=== PATIENT | male | born 1980 | race Caucasian/White ===

== ENCOUNTER 2022-03-16 09:16 | Emergency (ER) | payer OTHER ==
[~2022-03-16] VITALS: Ht 177.8 cm; Wt 97.7 kg
[2022-03-16 09:23] VITALS: BP 147/110
[2022-03-16 09:26] VITALS: BP 153/99
[2022-03-16 09:30] VITALS: BP 158/115
[2022-03-16] MEDS ORDERED: CEPHALEXIN500 MG PO (09:31)
[2022-03-16 09:45] VITALS: BP 144/95
[2022-03-16 11:11] VITALS: BP 144/95
== END 2022-03-16 11:19 | disposition home or self-care (01) | DRG 605 ==
LOC: ED 09:16
PROC: 0HQ1XZZ Repair Face Skin, External Approach (ICD-10-PCS; principal; 2022-03-16)
DX: S01.81XA Laceration without foreign body of other part of head, initial encounter (principal); S01.21XA Laceration without foreign body of nose, initial encounter; Y35.811A Legal intervention involving manhandling, law enforcement official injured, initial encounter; Y92.149 Unspecified place in prison as the place of occurrence of the external cause; Y99.0 Civilian activity done for income or pay

== ENCOUNTER 2024-05-31 19:51 | Emergency (ER) | payer OTHER ==
[~2024-05-31] VITALS: Ht 177.8 cm; Wt 90.0 kg
[~2024-05-31 19:51] MED LIST: CEPHALEXIN500 MG PO
[2024-05-31 20:38] VITALS: BP 168/104
[2024-05-31] MEDS ORDERED: MORPHINE SULFATE 4 MG/ML VIAL IV STA (20:54)
[2024-05-31] MEDS ORDERED: SODIUM CHLORIDE 0.9% 1,000 ML IV STA (20:54)
[2024-05-31] MEDS ORDERED: TAMSULOSIN HCL 0.4 MG CAP PO STA (20:54)
[2024-05-31] MEDS ORDERED: PROMETHAZINE HCL 25 MG/ML AMP IV ONE (20:55)
[2024-05-31] MEDS ORDERED: KETOROLAC TROMETHAMINE 30 MG/ML SDV IV ONE (20:55)
[2024-05-31 21:23] LABS: BASO% 0.3 % (0-3); EOS% 0.9 % (0-8); HEMOGLOBIN 15.4 g/dl (14.0-18.0); IMMATURE GRANULOCYTES 0.2 % (0.0-5.0); LYMPH% 15.5 % (15-41); MEAN CELL VOLUME 88.3 fL CALC (80.0-100.0); MEAN CORPUSCULAR HGB 29.6 pG CALC (26.0-32.0); MEAN CORPUSCULAR HGB CONC 33.5 g/dL CAL (32.0-36.0); MONO% 4.6 % (2-13); NEUT# 9.18 thou/uL (1.82-7.42); NEUT% 78.5 % (42-76); RED BLOOD COUNT 5.21 mill/uL (4.70-6.10); RED CELL DISTRI WIDTH 12.8 % (11.5-15.5)
[2024-05-31 21:29] LABS: URINE BILIRUBIN - DIPSTICK Negative (NEGATIVE); URINE BLOOD DIPSTICK Large (NEGATIVE); URINE GLUCOSE - DIPSTICK Negative (NEGATIVE); URINE KETONE Negative (NEGATIVE); URINE LEUK ESTERASE Negative (NEGATIVE); URINE NITRITE - DIPSTICK Negative (Negative); URINE PH 5.5 (4.5-8.0); URINE PROTEIN - DIPSTICK Trace mg/dL (NEG-TRACE); URINE SPECIFIC GRAVITY >=1.030; URINE UROBILINOGEN - DIPSTICK 0.2 E.U./dL (0.2)
[2024-05-31 21:33] LABS: URINE COLOR Yellow
[2024-05-31 21:38] LABS: ALBUMIN 4.7 g/dL (3.2-5.0); BILIRUBIN, TOTAL 0.5 mg/dL (0.2-1.3); CREATININE 1.4 mg/dL (0.7-1.3); POTASSIUM 4.4 mmol/l (3.5-5.1); TOTAL PROTEIN 7.9 g/dL (6.3-8.2); URINE CALCIUM OXALATE CRYSTALS FEW lpf
[2024-05-31] MEDS ORDERED: LACTATED RINGER'S 1,000 ML IV ONE (22:00)
[2024-05-31] MEDS ORDERED: TAMSULOSIN0.4 MG PO (23:01)
[2024-05-31] MEDS ORDERED: NAPROXEN375 MG PO (23:01)
[2024-05-31] MEDS ORDERED: LORTAB 5/3255 MG PO (23:01)
[2024-05-31 23:27] VITALS: BP 168/104
== END 2024-05-31 23:27 | disposition home or self-care (01) | DRG 694 ==
LOC: ED 19:51
PROVIDERS: Family Medicine
DX: N13.2 Hydronephrosis with renal and ureteral calculous obstruction (principal); F17.200 Nicotine dependence, unspecified, uncomplicated; Z87.442 Personal history of urinary calculi